=== PATIENT | male | born 1960 | race Caucasian/White ===

== ENCOUNTER 2017-10-30 19:19 | Emergency (ER) | payer OTHER ==
[~2017-10-30] VITALS: Ht 177.8 cm; Wt 74.8 kg
[~2017-10-30 19:19] MED LIST: ACET325 PO; ACET500 PO; ASPI81CH PO; ATOR20 PO; Aspir-Low81 MG PO; Benadryl 50 mg50 MG PO; CEPH500 PO; CRUTCH4 USE; DOCU100 PO; FOLI1 PO; FURO40 PO; HYDACE5 PO; HYDCOR1TC TOP; HYDR1TAB94 PO; IBUP800 PO; LISI5 PO; LOVA20 PO; MELO7.5 PO; METO25 PO; METO50ER PO; MULVITMIND PO; NAPR500 PO; Nix Lice Treatm59 ML TOP; Norco 5-325 Ta1 EACH PO; OXYACE5T PO; PENVK500 PO; POTCHL10ER PO; Permethrin60 GM TP; RXCEPH500 PO; RXHYDACE PO; RXSULTRIDS PO; RXTRAM50 PO; SULTRIDS PO; THIA100 PO; TRAM50 PO; ULTRA-LIGHT RO1 EACH UD; Ultram50 MG PO
== END 2017-10-30 19:40 | disposition home or self-care (01) ==
LOC: ER 19:19
DX: F10.229 Alcohol dependence with intoxication, unspecified (principal); F17.290 Nicotine dependence, other tobacco product, uncomplicated
CPT/HCPCS: 99283

== ENCOUNTER 2017-12-26 23:13 | Emergency (ER) | payer OTHER ==
[~2017-12-26] VITALS: Ht 177.8 cm; Wt 74.8 kg
[2017-12-26] MEDS ORDERED: BUPR150ER PO (23:19)
[2017-12-26] MEDS ORDERED: PRAV20 PO (23:19)
[2017-12-26] MEDS ORDERED: OMEPRAZOLE MAGN20 MG PO (23:19)
[2017-12-26] MEDS ORDERED: ASPI81CH PO (23:20)
[2017-12-26] MEDS ORDERED: METO25ER PO (23:20)
[2017-12-26] MEDS ORDERED: LISI5 PO (23:20)
[2017-12-26] MEDS ORDERED: NITR.4SL SL (23:21)
[2017-12-27 00:40] LABS: Calcium, Ionized (POC) 1.18 mmol/L (1.10-1.46); Chloride (POC) 105 mmol/L (98-108); Creatinine (POC) 1.7 mg/dL (0.8-1.3); Glucose (ISTAT POC) 107 mg/dL (70-99); Hemoglobin (POC) 11.6 g/dL (13.5-17.5); Potassium (POC) 5.2 mmol/L (3.5-5.5); Sodium (POC) 132 mmol/L (135-148); Total CO2 (POC) 16 mmol/L (21-32)
[2017-12-27] MEDS ORDERED: Cipro500 MG PO (00:41)
[2017-12-27 00:49] LABS: Source, Urine Voided
[2017-12-27 01:09] LABS: Bilirubin, Urine Neg (Neg); Blood, Urine 3+ (Neg); Glucose Qualitative, Urine Neg (Neg); Ketones, Urine Neg (Neg); Leukocyte Esterase, Urine 3+ (Neg); Nitrite, Urine Pos (Neg); Protein, Urine 1+ (Neg); Urobilinogen, Urine NORM (Normal)
[2017-12-27 01:10] LABS: Appearance, Urine Hazy (Clear); Color, Urine Pale Yellow (P-Yellow)
[2017-12-27 01:30] LABS: Bacteria Many /hpf; Red Blood Cells, Urine Rare /hpf (0-2); Squamous Epithelial Cells Few /hpf (Few); White Blood Cells, Urine TNTC /hpf (0-5)
== END 2017-12-27 01:40 | disposition home or self-care (01) ==
LOC: ER 23:13
PROVIDERS: Emergency Medicine
DX: N39.0 Urinary tract infection, site not specified (principal); N28.9 Disorder of kidney and ureter, unspecified; I10 Essential (primary) hypertension; F17.200 Nicotine dependence, unspecified, uncomplicated
CPT/HCPCS: 51798; 80047; 81001; 85014; 87077; 87086; 87186; 99283

== ENCOUNTER 2018-06-10 22:02 | Emergency (ER) | payer OTHER ==
[~2018-06-10] VITALS: Ht 180.3 cm; Wt 77.1 kg
[~2018-06-10 22:02] MED LIST changes: +BUPR150ER PO; +Cipro500 MG PO; +METO25ER PO; +NITR.4SL SL; +OMEPRAZOLE MAGN20 MG PO; +PRAV20 PO
== END 2018-06-10 23:39 | disposition home or self-care (01) ==
LOC: ER 22:02
DX: S80.02XA Contusion of left knee, initial encounter (principal); V09.9XXA Pedestrian injured in unspecified transport accident, initial encounter; Z88.5 Allergy status to narcotic agent; I10 Essential (primary) hypertension; F17.210 Nicotine dependence, cigarettes, uncomplicated
CPT/HCPCS: 29505; 73564; 73590; 99283-25

== ENCOUNTER 2018-06-12 16:11 | Emergency (ER) | payer OTHER ==
[~2018-06-12] VITALS: Ht 170.2 cm; Wt 77.1 kg
[2018-06-12] MEDS ORDERED: BUPR150ER PO (16:20)
[2018-06-12] MEDS ORDERED: LISI5 PO (16:21)
[2018-06-12] MEDS ORDERED: CLOP75 PO (16:21)
[2018-06-12] MEDS ORDERED: PRAV20 PO (16:22)
[2018-06-12] MEDS ORDERED: ULTRA-LIGHT RO1 EACH MC ×2 (16:36→16:38)
[2018-06-12] MEDS ORDERED: Norco 5-325 Ta1 EACH PO (16:36)
== END 2018-06-12 16:46 | disposition home or self-care (01) ==
LOC: ER 16:11
DX: S82.142A Displaced bicondylar fracture of left tibia, initial encounter for closed fracture (principal); I10 Essential (primary) hypertension; F17.210 Nicotine dependence, cigarettes, uncomplicated; Z88.5 Allergy status to narcotic agent; Z79.899 Other long term (current) drug therapy; Z79.01 Long term (current) use of anticoagulants; V09.9XXA Pedestrian injured in unspecified transport accident, initial encounter
CPT/HCPCS: 29505; 99282-25

== ENCOUNTER 2018-10-28 07:56 | Emergency (ER) | payer OTHER ==
[~2018-10-28] VITALS: Ht 170.2 cm; Wt 77.1 kg
[~2018-10-28 07:56] MED LIST changes: +CLOP75 PO; +ULTRA-LIGHT RO1 EACH MC
[2018-10-28] MEDS ORDERED: Isosorbide Mono60 MG PO (09:16)
[2018-10-28] MEDS ORDERED: Pantoprazole So40 MG PO (09:16)
[2018-10-28] MEDS ORDERED: AMLO5 PO (09:16)
[2018-10-28] MEDS ORDERED: METO25ER PO (09:16)
[2018-10-28 10:13] LABS: BASOPHILS ABSOLUTE AUTO 0.02 K/mm3 (0.00-0.23); BASOPHILS PERCENT AUTO 0 % (0-2); EOSINOPHILS ABSOLUTE AUTO 0.03 K/mm3 (0.00-0.68); EOSINOPHILS PERCENT AUTO 0 % (0-6); Hematocrit 35.6 % (37.0-53.0); Hemoglobin 11.1 g/dL (13.5-17.5); IMMATURE GRAN ABSOLUTE AUTO 0.04 K/mm3 (0.00-0.10); IMMATURE GRAN PERCENT AUTO 0 % (0-1); LYMPHOCYTES ABSOLUTE AUTO 2.25 K/mm3 (0.84-5.20); LYMPHOCYTES PERCENT AUTO 21 % (21-46); MONOCYTES ABSOLUTE AUTO 1.53 K/mm3 (0.16-1.47); MONOCYTES PERCENT AUTO 14 % (4-13); Mean Corpuscular HGB 28.2 pg (26.0-34.0); Mean Corpuscular HGB Conc 31.2 g/dL (31.5-36.5); Mean Corpuscular Volume 90 fL (80-100); Mean Platelet Volume 10.1 fL (9.1-12.4); NEUTROPHILS ABSOLUTE AUTO 6.82 K/mm3 (1.96-9.15); NEUTROPHILS PERCENT AUTO 64 % (41-73); Platelet Count 238 K/mm3 (150-400); RDW Coefficient Variation 14.7 % (11.7-14.2); RDW Standard Deviation 49.2 fL (35.1-46.3); Red Blood Cell Count 3.94 M/mm3 (4.30-5.90); White Blood Cell Count 10.69 K/mm3 (4.00-11.30)
[2018-10-28 10:32] LABS: Alanine Aminotransfer (ALT/SGP 31 U/L (12-78); Albumin, Blood 3.4 g/dL (3.4-5.0); Albumin/Globulin Ratio 0.6 (0.8-1.8); Alk Phos 92 U/L (50-136); Anion Gap 10 mmol/L (6-16); Aspartate Aminotrans (AST/SGOT 28 U/L (12-37); Bilirubin, Total 0.5 mg/dL (0.1-1.0); Blood Urea Nitrogen 27 mg/dL (8-24); Bun/Creatinine Ratio 22.9 (12.0-20.0); CO2, Blood 22 mmol/L (21-32); Calcium, Blood 8.6 mg/dL (8.5-10.1); Chloride, Blood 104 mmol/L (98-108); Creatinine, Blood 1.18 mg/dL (0.60-1.20); Globulin, Blood 5.4 g/dL (2.2-4.0); Glomerular Filtration Rate >60 (60-); Glucose, Blood 95 mg/dL (70-99); Potassium, Blood 3.8 mmol/L (3.5-5.5); Sodium, Blood 136 mmol/L (136-145); Total Protein, Blood 8.8 g/dL (6.4-8.2); Uric Acid, Blood 9.3 mg/dL (3.5-7.2)
[2018-10-28] MEDS ORDERED: NAPR550 PO (10:46)
[2018-10-28] MEDS ORDERED: Norco 5-325 Ta1 EACH PO (10:46)
== END 2018-10-28 11:00 | disposition home or self-care (01) ==
LOC: ER 07:56
PROVIDERS: Physician Assistant
DX: M79.671 Pain in right foot (principal); I10 Essential (primary) hypertension; I25.10 Atherosclerotic heart disease of native coronary artery without angina pectoris; F17.210 Nicotine dependence, cigarettes, uncomplicated; Z88.5 Allergy status to narcotic agent; Z79.899 Other long term (current) drug therapy
CPT/HCPCS: 36415; 73630; 80053; 84550; 85025; 85651; 86140; 96374; 99284-25; J1885

== ENCOUNTER 2019-11-09 12:28 | Emergency (ER) | payer OTHER ==
[~2019-11-09] VITALS: Ht 154.9 cm; Wt 77.1 kg
[~2019-11-09 12:28] MED LIST changes: +AMLO5 PO; +Isosorbide Mono60 MG PO; +NAPR550 PO; +Pantoprazole So40 MG PO
[2019-11-09 13:30] LABS: Source, Urine Clean Catch
[2019-11-09 13:38] LABS: Bilirubin, Urine Neg (Neg); Blood, Urine 2+ (Neg); Glucose Qualitative, Urine Neg (Neg); Ketones, Urine Neg (Neg); Leukocyte Esterase, Urine 3+ (Neg); Nitrite, Urine Pos (Neg); Protein, Urine 3+ (Neg); Specific Gravity, Urine 1.015 (1.003-1.022); Urobilinogen, Urine NORM (Normal)
[2019-11-09 13:49] LABS: Appearance, Urine Hazy (Clear); Bacteria Many /hpf; Color, Urine Yellow (P-Yellow); Mucus Light (0-Heavy); Squamous Epithelial Cells Few /hpf (Few); White Blood Cells, Urine 50-100 /hpf (0-5)
[2019-11-09 13:57] LABS: BASOPHILS ABSOLUTE AUTO 0.03 K/mm3 (0.00-0.23); BASOPHILS PERCENT AUTO 1 % (0-2); EOSINOPHILS ABSOLUTE AUTO 0.02 K/mm3 (0.00-0.68); EOSINOPHILS PERCENT AUTO 0 % (0-6); Hematocrit 39.8 % (37.0-53.0); Hemoglobin 12.4 g/dL (13.5-17.5); IMMATURE GRAN ABSOLUTE AUTO 0.02 K/mm3 (0.00-0.10); IMMATURE GRAN PERCENT AUTO 0 % (0-1); LYMPHOCYTES ABSOLUTE AUTO 1.74 K/mm3 (0.84-5.20); LYMPHOCYTES PERCENT AUTO 29 % (21-46); MONOCYTES ABSOLUTE AUTO 1.06 K/mm3 (0.16-1.47); MONOCYTES PERCENT AUTO 18 % (4-13); Mean Corpuscular HGB 28.8 pg (26.0-34.0); Mean Corpuscular HGB Conc 31.2 g/dL (31.5-36.5); Mean Corpuscular Volume 93 fL (80-100); Mean Platelet Volume 10.1 fL (9.1-12.4); NEUTROPHILS ABSOLUTE AUTO 3.15 K/mm3 (1.96-9.15); NEUTROPHILS PERCENT AUTO 52 % (41-73); Platelet Count 339 K/mm3 (150-400); RDW Coefficient Variation 16.3 % (11.7-14.2); RDW Standard Deviation 53.5 fL (35.1-46.3); White Blood Cell Count 6.02 K/mm3 (4.00-11.30)
[2019-11-09 14:09] LABS: Alanine Aminotransfer (ALT/SGP 62 U/L (12-78); Albumin, Blood 3.5 g/dL (3.4-5.0); Albumin/Globulin Ratio 0.6 (0.8-1.8); Alk Phos 70 U/L (50-136); Anion Gap 7 mmol/L (6-16); Aspartate Aminotrans (AST/SGOT 57 U/L (12-37); Bilirubin, Total 0.3 mg/dL (0.1-1.0); Blood Urea Nitrogen 16 mg/dL (8-24); Bun/Creatinine Ratio 15.2 (12.0-20.0); CO2, Blood 23 mmol/L (21-32); Calcium, Blood 9.1 mg/dL (8.5-10.1); Chloride, Blood 107 mmol/L (98-108); Creatinine, Blood 1.05 mg/dL (0.60-1.20); Globulin, Blood 5.6 g/dL (2.2-4.0); Glomerular Filtration Rate >60 (60-); Glucose, Blood 102 mg/dL (70-99); Potassium, Blood 4.1 mmol/L (3.5-5.5); Sodium, Blood 137 mmol/L (136-145); Total Protein, Blood 9.1 g/dL (6.4-8.2)
[2019-11-09] MEDS ORDERED: LEVO750 PO (15:01)
== END 2019-11-09 15:03 | disposition home or self-care (01) ==
LOC: ER 12:28
PROVIDERS: Physician Assistant
DX: N39.0 Urinary tract infection, site not specified (principal); Z88.5 Allergy status to narcotic agent; Z79.899 Other long term (current) drug therapy; I10 Essential (primary) hypertension; K21.9 Gastro-esophageal reflux disease without esophagitis; F17.210 Nicotine dependence, cigarettes, uncomplicated
CPT/HCPCS: 36415; 80053; 81001; 85025; 87077; 87086; 87186; 99283

== ENCOUNTER 2019-11-19 11:13 | Emergency (ER) | payer OTHER ==
[~2019-11-19] VITALS: Ht 177.8 cm; Wt 80.7 kg
[~2019-11-19 11:13] MED LIST changes: +LEVO750 PO
[2019-11-19 12:52] LABS: BASOPHILS ABSOLUTE AUTO 0.01 K/mm3 (0.00-0.23); BASOPHILS PERCENT AUTO 0 % (0-2); EOSINOPHILS ABSOLUTE AUTO 0.04 K/mm3 (0.00-0.68); EOSINOPHILS PERCENT AUTO 1 % (0-6); Hematocrit 38.7 % (37.0-53.0); Hemoglobin 12.1 g/dL (13.5-17.5); IMMATURE GRAN ABSOLUTE AUTO 0.03 K/mm3 (0.00-0.10); IMMATURE GRAN PERCENT AUTO 1 % (0-1); LYMPHOCYTES ABSOLUTE AUTO 1.68 K/mm3 (0.84-5.20); LYMPHOCYTES PERCENT AUTO 27 % (21-46); MONOCYTES PERCENT AUTO 11 % (4-13); Mean Corpuscular HGB 28.6 pg (26.0-34.0); Mean Corpuscular HGB Conc 31.3 g/dL (31.5-36.5); Mean Corpuscular Volume 92 fL (80-100); NEUTROPHILS ABSOLUTE AUTO 3.79 K/mm3 (1.96-9.15); NEUTROPHILS PERCENT AUTO 61 % (41-73); Platelet Count 294 K/mm3 (150-400); RDW Coefficient Variation 16.4 % (11.7-14.2); RDW Standard Deviation 54.4 fL (35.1-46.3); Red Blood Cell Count 4.23 M/mm3 (4.30-5.90); White Blood Cell Count 6.25 K/mm3 (4.00-11.30)
[2019-11-19 13:13] LABS: Alanine Aminotransfer (ALT/SGP 26 U/L (12-78); Albumin, Blood 3.2 g/dL (3.4-5.0); Albumin/Globulin Ratio 0.6 (0.8-1.8); Alk Phos 64 U/L (50-136); Anion Gap 4 mmol/L (6-16); Aspartate Aminotrans (AST/SGOT 24 U/L (12-37); Bilirubin, Total 0.2 mg/dL (0.1-1.0); Blood Urea Nitrogen 30 mg/dL (8-24); CO2, Blood 25 mmol/L (21-32); Calcium, Blood 9.4 mg/dL (8.5-10.1); Chloride, Blood 109 mmol/L (98-108); Creatinine, Blood 1.07 mg/dL (0.60-1.20); Globulin, Blood 5.6 g/dL (2.2-4.0); Glomerular Filtration Rate >60 (60-); Glucose, Blood 110 mg/dL (70-99); Potassium, Blood 4.1 mmol/L (3.5-5.5); Sodium, Blood 138 mmol/L (136-145); Total Protein, Blood 8.8 g/dL (6.4-8.2)
[2019-11-19 15:09] LABS: Source, Urine Clean Catch
[2019-11-19 15:12] LABS: Bilirubin, Urine Neg (Neg); Blood, Urine Neg (Neg); Glucose Qualitative, Urine Neg (Neg); Ketones, Urine Neg (Neg); Leukocyte Esterase, Urine Neg (Neg); Nitrite, Urine Neg (Neg); Protein, Urine 3+ (Neg); Specific Gravity, Urine 1.015 (1.003-1.022); Urobilinogen, Urine NORM (Normal)
[2019-11-19 15:19] LABS: Appearance, Urine Clear (Clear); Color, Urine Yellow (P-Yellow)
[2019-11-19 15:20] LABS: Bacteria Rare /hpf; Red Blood Cells, Urine 0-2 /hpf (0-2); Squamous Epithelial Cells Few /hpf (Few); White Blood Cells, Urine 0-2 /hpf (0-5)
[2019-11-19] MEDS ORDERED: KETO10 PO (18:26)
[2019-11-19] MEDS ORDERED: ACETAMINOPHEN500 MG PO (18:26)
[2019-11-19] MEDS ORDERED: ULTRA-LIGHT RO1 EACH MC (18:26)
== END 2019-11-19 21:27 | disposition home or self-care (01) ==
LOC: ER 11:13
PROVIDERS: Emergency Medicine; Physician Assistant
DX: S83.92XA Sprain of unspecified site of left knee, initial encounter (principal); F17.210 Nicotine dependence, cigarettes, uncomplicated; Z88.5 Allergy status to narcotic agent; Z79.899 Other long term (current) drug therapy; X58.XXXA Exposure to other specified factors, initial encounter
CPT/HCPCS: 36415; 73562-LT; 73706; 80053; 81001; 85025; 93005; 93010; 96374-59; 99285-25; J1885; Q9967

== ENCOUNTER 2020-06-14 13:42 | Emergency (ER) | payer OTHER ==
[~2020-06-14] VITALS: Ht 177.8 cm; Wt 79.4 kg
[~2020-06-14 13:42] MED LIST changes: +ACETAMINOPHEN500 MG PO; +KETO10 PO
[2020-06-14 16:28] LABS: Source, Urine Clean Catch
[2020-06-14 16:38] LABS: Appearance, Urine Cloudy (Clear); Bilirubin, Urine Neg (Neg); Blood, Urine 1+ (Neg); Color, Urine Yellow (P-Yellow); Glucose Qualitative, Urine Neg (Neg); Ketones, Urine Neg (Neg); Leukocyte Esterase, Urine 3+ (Neg); Nitrite, Urine Neg (Neg); Protein, Urine 3+ (Neg); Urobilinogen, Urine NORM (Normal)
[2020-06-14 16:51] LABS: Bacteria Many /hpf; Squamous Epithelial Cells Mod /hpf (Few); White Blood Cells, Urine 25-50 /hpf (0-5)
[2020-06-14] MEDS ORDERED: Bactrim Ds Tab1 EACH PO (19:38)
[2020-06-14] MEDS ORDERED: CEPH500 PO (19:38)
== END 2020-06-14 20:05 | disposition home or self-care (01) ==
LOC: ER 13:42
PROVIDERS: Emergency Medicine
DX: L02.414 Cutaneous abscess of left upper limb (principal); N39.0 Urinary tract infection, site not specified; F15.90 Other stimulant use, unspecified, uncomplicated; I10 Essential (primary) hypertension; F17.210 Nicotine dependence, cigarettes, uncomplicated; Z95.1 Presence of aortocoronary bypass graft; Z88.5 Allergy status to narcotic agent; Z79.899 Other long term (current) drug therapy
CPT/HCPCS: 10060; 81001; 87077; 87086; 87186; 99283-25; A9270-GY

== ENCOUNTER 2021-01-01 15:34 | Emergency (ER) | payer OTHER ==
[~2021-01-01] VITALS: Ht 177.8 cm; Wt 72.6 kg
[~2021-01-01 15:34] MED LIST changes: +Bactrim Ds Tab1 EACH PO
[2021-01-01] MEDS ORDERED: NAPR500 PO (17:13)
== END 2021-01-01 17:30 | disposition home or self-care (01) ==
LOC: ER 15:34
DX: M25.531 Pain in right wrist (principal); M54.5 Low back pain; I10 Essential (primary) hypertension; F17.210 Nicotine dependence, cigarettes, uncomplicated; Z88.5 Allergy status to narcotic agent; Z79.899 Other long term (current) drug therapy
CPT/HCPCS: 73130; 99283-25; A9270

== ENCOUNTER 2021-05-16 22:10 | Emergency (ER) | payer OTHER ==
[~2021-05-16] VITALS: Ht 167.6 cm; Wt 81.7 kg
[2021-05-17 01:09] LABS: BASOPHILS ABSOLUTE AUTO 0.03 K/mm3 (0.00-0.23); BASOPHILS PERCENT AUTO 1 % (0-2); EOSINOPHILS ABSOLUTE AUTO 0.17 K/mm3 (0.00-0.68); EOSINOPHILS PERCENT AUTO 3 % (0-6); Hematocrit 38.1 % (37.0-53.0); Hemoglobin 11.9 g/dL (13.5-17.5); IMMATURE GRAN ABSOLUTE AUTO 0.01 K/mm3 (0.00-0.10); IMMATURE GRAN PERCENT AUTO 0 % (0-1); LYMPHOCYTES ABSOLUTE AUTO 2.38 K/mm3 (0.84-5.20); LYMPHOCYTES PERCENT AUTO 38 % (21-46); MONOCYTES ABSOLUTE AUTO 0.89 K/mm3 (0.16-1.47); MONOCYTES PERCENT AUTO 14 % (4-13); Mean Corpuscular HGB 28.1 pg (26.0-34.0); Mean Corpuscular HGB Conc 31.2 g/dL (31.5-36.5); Mean Corpuscular Volume 90 fL (80-100); Mean Platelet Volume 10.2 fL (9.1-12.4); NEUTROPHILS ABSOLUTE AUTO 2.78 K/mm3 (1.96-9.15); NEUTROPHILS PERCENT AUTO 44 % (41-73); Platelet Count 240 K/mm3 (150-400); RDW Coefficient Variation 14.6 % (11.7-14.2); RDW Standard Deviation 47.3 fL (35.1-46.3); Red Blood Cell Count 4.24 M/mm3 (4.30-5.90); White Blood Cell Count 6.26 K/mm3 (4.00-11.30)
[2021-05-17 01:37] LABS: Alanine Aminotransfer (ALT/SGP 23 U/L (12-78); Albumin, Blood 3.3 g/dL (3.4-5.0); Albumin/Globulin Ratio 0.6 (0.8-1.8); Alk Phos 96 U/L (50-136); Anion Gap 6 mmol/L (6-16); Aspartate Aminotrans (AST/SGOT 21 U/L (12-37); Bilirubin, Total 0.1 mg/dL (0.1-1.0); Blood Urea Nitrogen 24 mg/dL (8-24); Bun/Creatinine Ratio 17.1 (12.0-20.0); CO2, Blood 18 mmol/L (21-32); Calcium, Blood 8.9 mg/dL (8.5-10.1); Chloride, Blood 112 mmol/L (98-108); Globulin, Blood 5.6 g/dL (2.2-4.0); Glomerular Filtration Rate 51 (60-); Glucose, Blood 93 mg/dL (70-99); Potassium, Blood 5.2 mmol/L (3.5-5.5); Sodium, Blood 136 mmol/L (136-145); Total Protein, Blood 8.9 g/dL (6.4-8.2); Troponin I <0.015 ng/mL (0.000-0.040)
[2021-05-17] MEDS ORDERED: Lasix20 MG PO (02:35)
== END 2021-05-17 02:49 | disposition home or self-care (01) ==
LOC: ER 22:10
PROVIDERS: Emergency Medicine
DX: R60.9 Edema, unspecified (principal); R06.89 Other abnormalities of breathing; F17.210 Nicotine dependence, cigarettes, uncomplicated; F15.220 Other stimulant dependence with intoxication, uncomplicated; Z95.1 Presence of aortocoronary bypass graft; Z88.5 Allergy status to narcotic agent
CPT/HCPCS: 0031A; 71045; 80053; 83880; 84484; 85025; 91303; 93005; 93010; 99285-25

== ENCOUNTER 2021-12-20 00:37 | Inpatient (IN) | payer OTHER ==
[~2021-12-20] VITALS: Ht 172.7 cm; Wt 97.9 kg
[~2021-12-20 00:37] MED LIST changes: +Lasix20 MG PO
[2021-12-20] MEDS ORDERED: LOSARTAN POTASS25 M2 PO (00:50)
[2021-12-20 01:10] LABS: BASOPHILS ABSOLUTE AUTO 0.03 K/mm3 (0.00-0.23); BASOPHILS PERCENT AUTO 0 % (0-2); EOSINOPHILS ABSOLUTE AUTO 0.01 K/mm3 (0.00-0.68); EOSINOPHILS PERCENT AUTO 0 % (0-6); Hematocrit 33.9 % (37.0-53.0); Hemoglobin 10.4 g/dL (13.5-17.5); IMMATURE GRAN ABSOLUTE AUTO 0.13 K/mm3 (0.00-0.10); IMMATURE GRAN PERCENT AUTO 1 % (0-1); LYMPHOCYTES ABSOLUTE AUTO 1.01 K/mm3 (0.84-5.20); LYMPHOCYTES PERCENT AUTO 5 % (21-46); MONOCYTES ABSOLUTE AUTO 1.24 K/mm3 (0.16-1.47); MONOCYTES PERCENT AUTO 6 % (4-13); Mean Corpuscular HGB 26.9 pg (26.0-34.0); Mean Corpuscular HGB Conc 30.7 g/dL (31.5-36.5); Mean Corpuscular Volume 88 fL (80-100); Mean Platelet Volume 10.5 fL (9.1-12.4); NEUTROPHILS ABSOLUTE AUTO 17.14 K/mm3 (1.96-9.15); NEUTROPHILS PERCENT AUTO 88 % (41-73); Platelet Count 251 K/mm3 (150-400); RDW Coefficient Variation 17.2 % (11.7-14.2); RDW Standard Deviation 55.3 fL (35.1-46.3); Red Blood Cell Count 3.87 M/mm3 (4.30-5.90); White Blood Cell Count 19.56 K/mm3 (4.00-11.30)
[2021-12-20 01:21] LABS: Albumin, Blood 3.5 g/dL (3.4-5.0); Albumin/Globulin Ratio 0.7 (0.8-1.8); Bilirubin, Total 0.3 mg/dL (0.1-1.0); Bun/Creatinine Ratio 21.6 (12.0-20.0); Calcium, Blood 9.1 mg/dL (8.5-10.1); Creatinine, Blood 1.25 mg/dL (0.60-1.20); Globulin, Blood 4.8 g/dL (2.2-4.0); Magnesium, Blood 1.6 mg/dL (1.6-2.4); Potassium, Blood 4.9 mmol/L (3.5-5.5); Total Protein, Blood 8.3 g/dL (6.4-8.2)
[2021-12-20 03:55] LABS: Influenza A, PCR NEGATIVE (NEGATIVE); Influenza B, PCR NEGATIVE (NEGATIVE); Resp Syncytial Virus, PCR NEGATIVE (NEGATIVE); SARS-Cov-2 (COVID-19) PCR, MMC NEGATIVE (NEGATIVE)
[2021-12-20] MEDS ORDERED: PRAV20 PO (05:18)
[2021-12-20] MEDS ORDERED: PANTOPRAZOLE SO40 M2 PO (05:19)
--- NOTE | 2021-12-20 06:36 | NUR ---
PT ARRIVED TO ROOM FROM ER VIA GURNEY IN STABLE CONDITION. PT HAS SOB THAT INCREASES WITH EXERTION, LUNGS ARE DIMINISHED WITH EXP/INS WHEEZES AND FINE CRACKLES T/O ON 3L NC O2 AT 98%. PT DENIES PAIN BUT REPORTS THAT WHEN HE MOVES HIS R ARM IT HURTS AND HE HAS ARTHRITIS WITH CHRONIC PAIN IN HIS KNEES AND BACK. PT HAS SCRATCHES AND REDNESS ON LE'S, TRACE EDEMA IN LE'S. PT DENIES NEED FOR ANYTHING AT THIS TIME. NO OTHER APPARENT SIGNS OF DISTRESS. CALL LIGHT IS IN REACH.
--- NOTE | 2021-12-20 16:09 | NUR ---
ALERT. CHRONIC PAIN RT SHLDR WHEN MOVING AREA. WHEEZES T/O. USES CPAP WHEN SLEEPING DURING DAY. PER MD KEEP SATS 88-94%. USES URINAL. IV PATENT. REQUESTED BEER FOR LUNCH AND DINNER,BUT MD FELT GABAPENTIN WAS BETTER FOR HIS WITHDRAWALS. PATIENT WAS ADVISED AND VERBALIZES UNDERSTANDING. ABLE TO MAKE NEEDS KNOWN. WCTM
--- NOTE | 2021-12-21 04:35 | NUR ---
SHIFT SUMMARY PATIENT DENIES ANY PAIN ABLE TO VOICE NEED REDIRECTED SEVERAL TIMES FOR REMOVING TELE STICKERS AND DISCONNECT IT .DR AMATO CALLED STATED THAT STRESS TEST RESULTS ARE NORMAL PATIENT OK TO BE D/C THIS MORNING .
--- NOTE | 2021-12-21 04:51 | NUR ---
SHIFT SUMMARY PATIENT CONT CIWA MONITOR NO NAUSA/VOMIT SOB NOTED CALM MOOD SLEPT MOST OF THE NIGHT DENIES PAIN NON PRODUCTIVE COUGH NOTED LUNGS SOUND CLEAR ROUTINE BREATHING TX ADM BY RT ON DUTY WITH RELIEF .NO ACUTE CHANGES NOTED
--- NOTE | 2021-12-21 16:35 | NUR ---
ALERT. ORIENTED. AWARE NPO EXCEPT FOR ICE CHIPS W/ORAL CARE PRIOR. LUNGS WHEEZING W/COARSE SOUNDS LOWER. IV PATENT. WCTM
[2021-12-22 04:29] LABS: BASOPHILS ABSOLUTE AUTO 0.03 K/mm3 (0.00-0.23); BASOPHILS PERCENT AUTO 0 % (0-2); EOSINOPHILS PERCENT AUTO 0 % (0-6); Hematocrit 33.9 % (37.0-53.0); Hemoglobin 10.3 g/dL (13.5-17.5); IMMATURE GRAN ABSOLUTE AUTO 0.25 K/mm3 (0.00-0.10); IMMATURE GRAN PERCENT AUTO 1 % (0-1); LYMPHOCYTES ABSOLUTE AUTO 0.77 K/mm3 (0.84-5.20); LYMPHOCYTES PERCENT AUTO 4 % (21-46); MONOCYTES ABSOLUTE AUTO 1.04 K/mm3 (0.16-1.47); MONOCYTES PERCENT AUTO 6 % (4-13); Mean Corpuscular HGB 27.2 pg (26.0-34.0); Mean Corpuscular HGB Conc 30.4 g/dL (31.5-36.5); Mean Corpuscular Volume 90 fL (80-100); Mean Platelet Volume 10.6 fL (9.1-12.4); NEUTROPHILS ABSOLUTE AUTO 16.96 K/mm3 (1.96-9.15); NEUTROPHILS PERCENT AUTO 89 % (41-73); Platelet Count 268 K/mm3 (150-400); RDW Coefficient Variation 17.5 % (11.7-14.2); RDW Standard Deviation 57.1 fL (35.1-46.3); Red Blood Cell Count 3.78 M/mm3 (4.30-5.90); White Blood Cell Count 19.05 K/mm3 (4.00-11.30)
[2021-12-22 04:44] LABS: Albumin, Blood 3.3 g/dL (3.4-5.0); Anion Gap 5 mmol/L (6-16); Blood Urea Nitrogen 51 mg/dL (8-24); Bun/Creatinine Ratio 40.2 (12.0-20.0); CO2, Blood 23 mmol/L (21-32); Calcium, Blood 9.2 mg/dL (8.5-10.1); Chloride, Blood 110 mmol/L (98-108); Creatinine, Blood 1.27 mg/dL (0.60-1.20); Glomerular Filtration Rate 57 (60-); Glucose, Blood 166 mg/dL (70-99); Magnesium, Blood 2.6 mg/dL (1.6-2.4); Phosphorus, Blood 4.5 mg/dL (2.5-4.9); Potassium, Blood 4.4 mmol/L (3.5-5.5); Sodium, Blood 138 mmol/L (136-145)
--- NOTE | 2021-12-22 15:45 | NUR ---
CALLED DR FOR ELEVATED BP. RESTARTED THE PT ON HIS HOME BP MEDS. [place] AND NORVASC GIVEN THIS AFTERNOON. WILL RECHECH THE BP.
--- NOTE | 2021-12-22 17:06 | NUR ---
SHIFT SUMMARY AOX4; PT IS 1P ASSIST TO CHAIR WHEN EATING. DYSPNEA ON EXERTION. PT IS ON 2L PRN ESPECIALLY WHEN ASLEEP. PT BP IS NOW STABLE, WILL RESTART HOME MEDS TOMORROW AM. BED IS IN THE LOWEST POSITION AND CALL LIGHT WITHIN REACH.
[2021-12-23 04:45] LABS: BASOPHILS ABSOLUTE AUTO 0.02 K/mm3 (0.00-0.23); BASOPHILS PERCENT AUTO 0 % (0-2); EOSINOPHILS PERCENT AUTO 0 % (0-6); Hematocrit 31.7 % (37.0-53.0); Hemoglobin 9.5 g/dL (13.5-17.5); IMMATURE GRAN ABSOLUTE AUTO 0.38 K/mm3 (0.00-0.10); IMMATURE GRAN PERCENT AUTO 2 % (0-1); LYMPHOCYTES ABSOLUTE AUTO 0.81 K/mm3 (0.84-5.20); LYMPHOCYTES PERCENT AUTO 5 % (21-46); MONOCYTES ABSOLUTE AUTO 1.23 K/mm3 (0.16-1.47); MONOCYTES PERCENT AUTO 7 % (4-13); Mean Corpuscular HGB 26.9 pg (26.0-34.0); Mean Corpuscular Volume 90 fL (80-100); Mean Platelet Volume 10.8 fL (9.1-12.4); NEUTROPHILS ABSOLUTE AUTO 14.15 K/mm3 (1.96-9.15); NEUTROPHILS PERCENT AUTO 85 % (41-73); Platelet Count 278 K/mm3 (150-400); RDW Coefficient Variation 17.6 % (11.7-14.2); RDW Standard Deviation 57.8 fL (35.1-46.3); Red Blood Cell Count 3.53 M/mm3 (4.30-5.90); White Blood Cell Count 16.59 K/mm3 (4.00-11.30)
[2021-12-23 05:07] LABS: Bun/Creatinine Ratio 45.2 (12.0-20.0); Creatinine, Blood 1.35 mg/dL (0.60-1.20); Potassium, Blood 4.9 mmol/L (3.5-5.5)
--- NOTE | 2021-12-23 17:17 | NUR ---
SUMMARY- PT A/O X3-4. FLAT AFFECT. STATES HE FEELS HIS BREATHING IS BETTER THAN WHEN HE ARRIVED TO ED. PT AMBLATES SBA IN THE ROOM. HAD A SHOWER TODAY. DYPPNEA WITH EXERTION, O2 AT 2L. SATS 98%, OXYGEN TAKEN OFF 1715 AND SATS MAINTAINING 96% ROOM AIR. TOLERATING FOOD AND FLUIDS. STATES LAST BM SATURDAY. GIVEN PRUNE JUICE. LIKELY DC HOME TOMORROW
[2021-12-24 05:05] LABS: BASOPHILS ABSOLUTE AUTO 0.05 K/mm3 (0.00-0.23); BASOPHILS PERCENT AUTO 0 % (0-2); EOSINOPHILS PERCENT AUTO 0 % (0-6); Hematocrit 32.7 % (37.0-53.0); Hemoglobin 9.9 g/dL (13.5-17.5); IMMATURE GRAN ABSOLUTE AUTO 0.56 K/mm3 (0.00-0.10); IMMATURE GRAN PERCENT AUTO 3 % (0-1); LYMPHOCYTES ABSOLUTE AUTO 2.23 K/mm3 (0.84-5.20); LYMPHOCYTES PERCENT AUTO 14 % (21-46); MONOCYTES ABSOLUTE AUTO 1.91 K/mm3 (0.16-1.47); MONOCYTES PERCENT AUTO 12 % (4-13); Mean Corpuscular HGB Conc 30.3 g/dL (31.5-36.5); Mean Corpuscular Volume 89 fL (80-100); Mean Platelet Volume 10.7 fL (9.1-12.4); NEUTROPHILS ABSOLUTE AUTO 11.79 K/mm3 (1.96-9.15); NEUTROPHILS PERCENT AUTO 71 % (41-73); Platelet Count 305 K/mm3 (150-400); RDW Coefficient Variation 17.8 % (11.7-14.2); RDW Standard Deviation 58.6 fL (35.1-46.3); Red Blood Cell Count 3.66 M/mm3 (4.30-5.90); White Blood Cell Count 16.54 K/mm3 (4.00-11.30)
[2021-12-24 05:26] LABS: Albumin/Globulin Ratio 0.7 (0.8-1.8); Bilirubin, Total 0.2 mg/dL (0.1-1.0); Bun/Creatinine Ratio 45.9 (12.0-20.0); Calcium, Blood 8.5 mg/dL (8.5-10.1); Creatinine, Blood 1.33 mg/dL (0.60-1.20); Globulin, Blood 4.4 g/dL (2.2-4.0); Magnesium, Blood 2.7 mg/dL (1.6-2.4); Potassium, Blood 4.3 mmol/L (3.5-5.5); Total Protein, Blood 7.4 g/dL (6.4-8.2)
--- NOTE | 2021-12-24 05:49 | NUR ---
SHIFT SUMMARY PATIENT ALERT AND ORIENTED DENIES PAIN IN THIS SHIFT ABLE TO VOICE NEEDS REQUESTED THIS NURSE TO REMOVE THE CPAP PT TEACHING DONE BUT PT INSISTED THAT HE DOES NOT NEED IT.LUNGS SOUND CLEAR NANDA NO COUGHING NO SOB NOTED NO ACUTE CHANGE NOTED
[2021-12-24] MEDS ORDERED: Acetaminophen325 M1 PO (09:33)
[2021-12-24] MEDS ORDERED: GABA300 PO (09:34)
[2021-12-24] MEDS ORDERED: NICO21TP TOP (09:35)
[2021-12-24] MEDS ORDERED: COMBIVENT RESPIM4 G1 INH (09:35)
[2021-12-24] MEDS ORDERED: PRED20 PO (09:36)
[2021-12-24] MEDS ORDERED: VISBIOME 112.51 EACH PO (09:37)
[2021-12-24] MEDS ORDERED: CEFD300 PO (09:37)
--- NOTE | 2021-12-24 11:35 | NUR ---
SUMMARY- PT DISCHARGED WITH DC INSTRUCTIONS. PT IS AMBULATORY IN THE ROOM. MIN SOB WITH EXERTION. SATS 98% ROOM AIR, SATS DECREASE WITH COUGHING EPISODE TO 93%. HOME O2 EVAL COMPLETE; PT DOESN'T QUALIFY FOR HOME OXYGEN. RX FAXED TO [facility] WHERE HE STATES HE HAS SOMEONE TO HELP HIM PICK THAT UP. CALLED [facility] TO PICK HIM UP, DID NOT WANT TO WAIT UNTIL 1400 [facility] HOS[facility] TRANSPORT OFFERED. SENT HOME WITH BELONGINGS INCLUDING FLIP PHONE AND END USER CONSULTANT. WHEEL CHAIR OUT TO [facility]4
== END 2021-12-24 11:29 | disposition home or self-care (01) | DRG 871 ==
LOC: ER 00:37 → MEDS 05:28
PROVIDERS: Family Medicine; Internal Medicine; Student in an Organized Health Care Education/Training Program; ADMIT Internal Medicine
DX: A41.9 Sepsis, unspecified organism (principal); J18.9 Pneumonia, unspecified organism; J96.01 Acute respiratory failure with hypoxia; J44.1 Chronic obstructive pulmonary disease with (acute) exacerbation; I50.32 Chronic diastolic (congestive) heart failure; R65.20 Severe sepsis without septic shock; J44.0 Chronic obstructive pulmonary disease with (acute) lower respiratory infection; Z23 Encounter for immunization; D64.9 Anemia, unspecified; I25.10 Atherosclerotic heart disease of native coronary artery without angina pectoris; Z20.822 Contact with and (suspected) exposure to COVID-19; R13.10 Dysphagia, unspecified; F10.20 Alcohol dependence, uncomplicated; M54.50 Low back pain, unspecified; G89.29 Other chronic pain; M10.9 Gout, unspecified; J45.909 Unspecified asthma, uncomplicated; I11.0 Hypertensive heart disease with heart failure; F17.210 Nicotine dependence, cigarettes, uncomplicated; Z88.5 Allergy status to narcotic agent; Z95.1 Presence of aortocoronary bypass graft; Z79.899 Other long term (current) drug therapy
CPT/HCPCS: 0241U; 36415; 71045; 74230; 80048; 80053; 80069; 83605; 83735; 83880; 84145; 85025; 87040; 87070; 87205; 90686; 92526; 92610; 92611; 93005; 93010; 94640; 94645; 94660; 94664; 94760; 94761; 94762; 96365; 96375; 99285-25; A9270; J0456; J0696; J1650; J2930; J7050; J7512

== ENCOUNTER 2022-04-16 19:29 | Emergency (ER) | payer OTHER ==
[~2022-04-16] VITALS: Ht 177.8 cm; Wt 119.3 kg
[~2022-04-16 19:29] MED LIST changes: +Acetaminophen325 M1 PO; +CEFD300 PO; +COMBIVENT RESPIM4 G1 INH; +GABA300 PO; +LOSARTAN POTASS25 M2 PO; +NICO21TP TOP; +PANTOPRAZOLE SO40 M2 PO; +PRED20 PO; +VISBIOME 112.51 EACH PO
[2022-04-16] MEDS ORDERED: CEPH500 PO (20:31)
== END 2022-04-16 20:51 | disposition home or self-care (01) ==
LOC: ER 19:29
DX: L03.116 Cellulitis of left lower limb (principal); L03.115 Cellulitis of right lower limb; I11.0 Hypertensive heart disease with heart failure; I50.9 Heart failure, unspecified; J44.9 Chronic obstructive pulmonary disease, unspecified; F17.210 Nicotine dependence, cigarettes, uncomplicated; Z88.5 Allergy status to narcotic agent; Z79.899 Other long term (current) drug therapy
CPT/HCPCS: A9270

== ENCOUNTER 2023-01-09 17:39 | Emergency (ER) | payer OTHER ==
[~2023-01-09] VITALS: Ht 180.3 cm; Wt 90.7 kg
[2023-01-09 18:17] LABS: BASOPHILS ABSOLUTE AUTO 0.03 K/mm3 (0.00-0.23); BASOPHILS PERCENT AUTO 0 % (0-2); EOSINOPHILS ABSOLUTE AUTO 0.02 K/mm3 (0.00-0.68); EOSINOPHILS PERCENT AUTO 0 % (0-6); Hematocrit 31.4 % (37.0-53.0); Hemoglobin 9.6 g/dL (13.5-17.5); IMMATURE GRAN PERCENT AUTO 1 % (0-1); LYMPHOCYTES ABSOLUTE AUTO 2.46 K/mm3 (0.84-5.20); LYMPHOCYTES PERCENT AUTO 15 % (21-46); MONOCYTES ABSOLUTE AUTO 1.76 K/mm3 (0.16-1.47); MONOCYTES PERCENT AUTO 11 % (4-13); Mean Corpuscular HGB 24.7 pg (26.0-34.0); Mean Corpuscular HGB Conc 30.6 g/dL (31.5-36.5); Mean Corpuscular Volume 81 fL (80-100); Mean Platelet Volume 10.2 fL (9.1-12.4); NEUTROPHILS ABSOLUTE AUTO 11.76 K/mm3 (1.96-9.15); NEUTROPHILS PERCENT AUTO 73 % (41-73); Platelet Count 448 K/mm3 (150-400); RDW Coefficient Variation 17.1 % (11.7-14.2); RDW Standard Deviation 50.1 fL (35.1-46.3); Red Blood Cell Count 3.88 M/mm3 (4.30-5.90); White Blood Cell Count 16.13 K/mm3 (4.00-11.30)
[2023-01-09 18:34] LABS: Albumin, Blood 2.8 g/dL (3.4-5.0); Albumin/Globulin Ratio 0.5 (0.8-1.8); Bilirubin, Total 0.3 mg/dL (0.1-1.0); Calcium, Blood 8.9 mg/dL (8.5-10.1); Creatinine, Blood 1.26 mg/dL (0.60-1.20); Globulin, Blood 5.8 g/dL (2.2-4.0); Potassium, Blood 4.3 mmol/L (3.5-5.5); Total Protein, Blood 8.6 g/dL (6.4-8.2)
[2023-01-09 22:29] LABS: Source, Urine Clean Catch
[2023-01-09 22:46] LABS: Bilirubin, Urine Neg (Neg); Blood, Urine 4+ (Neg); Glucose Qualitative, Urine Neg (Neg); Ketones, Urine Neg (Neg); Leukocyte Esterase, Urine 3+ (Neg); Nitrite, Urine Neg (Neg); Protein, Urine 3+ (Neg); Specific Gravity, Urine 1.015 (1.003-1.022); Urobilinogen, Urine NORM (Normal)
[2023-01-09 23:12] LABS: Appearance, Urine Hazy (Clear); Color, Urine Yellow (P-Yellow)
[2023-01-09 23:14] LABS: Bacteria Many /hpf; Hyaline Casts 0-2 /lpf (0-2); Squamous Epithelial Cells Few /hpf (Few); Transitional Epithelial Cells Rare /hpf (0-Rare); White Blood Cells, Urine TNTC /hpf (0-5)
[2023-01-09 23:30] LABS: Influenza A, PCR NEGATIVE (NEGATIVE); Influenza B, PCR NEGATIVE (NEGATIVE); Resp Syncytial Virus, PCR NEGATIVE (NEGATIVE); SARS-Cov-2 (COVID-19) PCR, MMC NEGATIVE (NEGATIVE)
[2023-01-10 00:45] VITALS: BP 176/86
[2023-01-10] MEDS ORDERED: CEPH500 PO (00:54)
== END 2023-01-10 01:07 | disposition home or self-care (01) ==
LOC: ER 17:39
PROVIDERS: Physician Assistant; Student in an Organized Health Care Education/Training Program
DX: N39.0 Urinary tract infection, site not specified (principal); D72.829 Elevated white blood cell count, unspecified; E87.1 Hypo-osmolality and hyponatremia; Z88.5 Allergy status to narcotic agent; Z79.899 Other long term (current) drug therapy; Z79.52 Long term (current) use of systemic steroids; F17.210 Nicotine dependence, cigarettes, uncomplicated; Z20.822 Contact with and (suspected) exposure to COVID-19; I11.0 Hypertensive heart disease with heart failure; I50.9 Heart failure, unspecified; J44.9 Chronic obstructive pulmonary disease, unspecified; M10.9 Gout, unspecified; I25.810 Atherosclerosis of coronary artery bypass graft(s) without angina pectoris; Z12.5 Encounter for screening for malignant neoplasm of prostate; D64.9 Anemia, unspecified
CPT/HCPCS: 0241U; 36415; 71046; 80053; 80061; 81001; 83605; 84443; 85025; 87077; 87086; 87186; 93005; 93010; 96360; 99283-25; G0103; J7030

== ENCOUNTER 2023-05-02 19:06 | Emergency (ER) | payer OTHER ==
[~2023-05-02] VITALS: Ht 177.8 cm; Wt 77.9 kg
[2023-05-02 19:14] VITALS: BP 193/108
[2023-05-02 19:39] LABS: BASOPHILS ABSOLUTE AUTO 0.06 K/mm3 (0.00-0.23); BASOPHILS PERCENT AUTO 1 % (0-2); EOSINOPHILS ABSOLUTE AUTO 0.05 K/mm3 (0.00-0.68); EOSINOPHILS PERCENT AUTO 0 % (0-6); Hematocrit 27.7 % (37.0-53.0); Hemoglobin 8.7 g/dL (13.5-17.5); IMMATURE GRAN ABSOLUTE AUTO 0.06 K/mm3 (0.00-0.10); IMMATURE GRAN PERCENT AUTO 1 % (0-1); LYMPHOCYTES ABSOLUTE AUTO 2.74 K/mm3 (0.84-5.20); LYMPHOCYTES PERCENT AUTO 22 % (21-46); MONOCYTES ABSOLUTE AUTO 0.94 K/mm3 (0.16-1.47); MONOCYTES PERCENT AUTO 7 % (4-13); Mean Corpuscular HGB Conc 31.4 g/dL (31.5-36.5); Mean Corpuscular Volume 73 fL (80-100); Mean Platelet Volume 10.2 fL (9.1-12.4); NEUTROPHILS ABSOLUTE AUTO 8.81 K/mm3 (1.96-9.15); NEUTROPHILS PERCENT AUTO 70 % (41-73); Platelet Count 600 K/mm3 (150-400); RDW Coefficient Variation 18.3 % (11.7-14.2); RDW Standard Deviation 47.9 fL (35.1-46.3); Red Blood Cell Count 3.79 M/mm3 (4.30-5.90); White Blood Cell Count 12.66 K/mm3 (4.00-11.30)
[2023-05-02 20:05] LABS: Albumin, Blood 2.6 g/dL (3.4-5.0); Albumin/Globulin Ratio 0.4 (0.8-1.8); Bilirubin, Total 0.5 mg/dL (0.1-1.0); Bun/Creatinine Ratio 30.4 (12.0-20.0); Calcium, Blood 9.7 mg/dL (8.5-10.1); Creatinine, Blood 0.92 mg/dL (0.60-1.20); Globulin, Blood 5.8 g/dL (2.2-4.0); Potassium, Blood 4.5 mmol/L (3.5-5.5); Total Protein, Blood 8.4 g/dL (6.4-8.2)
[2023-05-02 22:12] LABS: Source, Urine Clean Catch
[2023-05-02 22:21] LABS: Bilirubin, Urine Neg (Neg); Blood, Urine 1+ (Neg); Glucose Qualitative, Urine Neg (Neg); Ketones, Urine Neg (Neg); Leukocyte Esterase, Urine 1+ (Neg); Nitrite, Urine Neg (Neg); Protein, Urine 3+ (Neg); Specific Gravity, Urine 1.015 (1.003-1.022); Urobilinogen, Urine NORM (Normal)
[2023-05-02 22:37] LABS: Appearance, Urine Hazy (Clear); Color, Urine Yellow (P-Yellow)
[2023-05-02 22:40] LABS: Bacteria Many /hpf; Red Blood Cells, Urine 0-2 /hpf (0-2); Squamous Epithelial Cells Rare /hpf (Few)
[2023-05-03] MEDS ORDERED: FURO20 PO (01:45)
[2023-05-03] MEDS ORDERED: CEFP200 PO (01:45)
[2023-05-03] MEDS ORDERED: NAPR500 PO (01:45)
[2023-05-03] MEDS ORDERED: ONDA4ODT MM (01:46)
== END 2023-05-03 01:53 | disposition home or self-care (01) ==
LOC: ER 19:06
PROVIDERS: Physician Assistant
DX: G89.29 Other chronic pain (principal); M54.50 Low back pain, unspecified; R60.0 Localized edema; D64.9 Anemia, unspecified; R19.7 Diarrhea, unspecified; I25.10 Atherosclerotic heart disease of native coronary artery without angina pectoris; I11.0 Hypertensive heart disease with heart failure; I50.9 Heart failure, unspecified; J44.9 Chronic obstructive pulmonary disease, unspecified; F17.210 Nicotine dependence, cigarettes, uncomplicated; Z88.5 Allergy status to narcotic agent; Z79.52 Long term (current) use of systemic steroids; Z79.899 Other long term (current) drug therapy
CPT/HCPCS: 80053; 81001; 83605; 85025; 87077; 87086; 87186; 96374; 96375; 99283-25; J0696; J1885; J1940

== ENCOUNTER 2023-06-12 14:09 | Emergency (ER) | payer OTHER ==
[~2023-06-12] VITALS: Ht 172.7 cm; Wt 81.7 kg
[~2023-06-12 14:09] MED LIST changes: +CEFP200 PO; +FURO20 PO; +ONDA4ODT MM
[2023-06-12 15:46] LABS: BASOPHILS ABSOLUTE AUTO 0.03 K/mm3 (0.00-0.23); BASOPHILS PERCENT AUTO 1 % (0-2); EOSINOPHILS ABSOLUTE AUTO 0.02 K/mm3 (0.00-0.68); EOSINOPHILS PERCENT AUTO 0 % (0-6); Hematocrit 22.6 % (37.0-53.0); Hemoglobin 7.3 g/dL (13.5-17.5); IMMATURE GRAN ABSOLUTE AUTO 0.03 K/mm3 (0.00-0.10); IMMATURE GRAN PERCENT AUTO 1 % (0-1); LYMPHOCYTES ABSOLUTE AUTO 1.13 K/mm3 (0.84-5.20); LYMPHOCYTES PERCENT AUTO 18 % (21-46); MONOCYTES ABSOLUTE AUTO 0.78 K/mm3 (0.16-1.47); MONOCYTES PERCENT AUTO 12 % (4-13); Mean Corpuscular HGB 20.7 pg (26.0-34.0); Mean Corpuscular HGB Conc 32.3 g/dL (31.5-36.5); Mean Corpuscular Volume 64 fL (80-100); NEUTROPHILS ABSOLUTE AUTO 4.32 K/mm3 (1.96-9.15); NEUTROPHILS PERCENT AUTO 68 % (41-73); NRBC ABSOLUTE 0.02 K/mm3 (0.00-0.02); NRBC Auto 0.3 /100 WBC (0.0-0.2); Platelet Count 550 K/mm3 (150-400); RDW Coefficient Variation 22.5 % (11.7-14.2); RDW Standard Deviation 47.7 fL (35.1-46.3); Red Blood Cell Count 3.52 M/mm3 (4.30-5.90); White Blood Cell Count 6.31 K/mm3 (4.00-11.30)
[2023-06-12 15:50] LABS: Mean Platelet Volume 10.4 fL (9.1-12.4)
[2023-06-12 16:10] LABS: Albumin, Blood 2.6 g/dL (3.4-5.0); Albumin/Globulin Ratio 0.5 (0.8-1.8); Bilirubin, Total 0.9 mg/dL (0.1-1.0); Bun/Creatinine Ratio 44.4 (12.0-20.0); Calcium, Blood 9.1 mg/dL (8.5-10.1); Creatinine, Blood 1.87 mg/dL (0.60-1.20); Globulin, Blood 5.1 g/dL (2.2-4.0); Potassium, Blood 4.3 mmol/L (3.5-5.5); Total Protein, Blood 7.7 g/dL (6.4-8.2)
[2023-06-12] MEDS ORDERED: CEPH500 PO (16:54)
[2023-06-12 17:12] VITALS: BP 158/85
== END 2023-06-12 17:52 | disposition home or self-care (01) ==
LOC: ER 14:09
PROVIDERS: Physician Assistant
DX: L03.116 Cellulitis of left lower limb (principal); L03.115 Cellulitis of right lower limb; D64.9 Anemia, unspecified; I11.0 Hypertensive heart disease with heart failure; I50.9 Heart failure, unspecified; J44.9 Chronic obstructive pulmonary disease, unspecified; F17.210 Nicotine dependence, cigarettes, uncomplicated; Z88.5 Allergy status to narcotic agent; Z79.899 Other long term (current) drug therapy
CPT/HCPCS: 71046; 80053; 83880; 85025; 96365; 96375; 99284-25; J0690; J1885; J1940

== ENCOUNTER 2023-06-28 19:41 | Inpatient (IN) | payer OTHER ==
[~2023-06-28] VITALS: Ht 177.8 cm; Wt 73.2 kg
[2023-06-28 20:57] LABS: Albumin, Blood 2.5 g/dL (3.4-5.0); Albumin/Globulin Ratio 0.5 (0.8-1.8); Bilirubin, Total 2.5 mg/dL (0.1-1.0); Bun/Creatinine Ratio 48.8 (12.0-20.0); Calcium, Blood 8.7 mg/dL (8.5-10.1); Creatinine, Blood 2.4 mg/dL (0.60-1.20); Globulin, Blood 5.3 g/dL (2.2-4.0); Potassium, Blood 4.1 mmol/L (3.5-5.5); Total Protein, Blood 7.8 g/dL (6.4-8.2)
[2023-06-28 21:05] LABS: BASOPHILS ABSOLUTE AUTO 0.03 K/mm3 (0.00-0.23); BASOPHILS PERCENT AUTO 0 % (0-2); EOSINOPHILS ABSOLUTE AUTO 0.01 K/mm3 (0.00-0.68); EOSINOPHILS PERCENT AUTO 0 % (0-6); Hemoglobin 6.9 g/dL (13.5-17.5); IMMATURE GRAN ABSOLUTE AUTO 0.46 K/mm3 (0.00-0.10); IMMATURE GRAN PERCENT AUTO 5 % (0-1); LYMPHOCYTES ABSOLUTE AUTO 0.67 K/mm3 (0.84-5.20); LYMPHOCYTES PERCENT AUTO 7 % (21-46); MONOCYTES ABSOLUTE AUTO 0.72 K/mm3 (0.16-1.47); MONOCYTES PERCENT AUTO 7 % (4-13); Mean Corpuscular HGB 20.1 pg (26.0-34.0); Mean Corpuscular HGB Conc 28.8 g/dL (31.5-36.5); Mean Corpuscular Volume 70 fL (80-100); NEUTROPHILS PERCENT AUTO 81 % (41-73); NRBC ABSOLUTE 0.52 K/mm3 (0.00-0.02); NRBC Auto 5.1 /100 WBC (0.0-0.2); Platelet Count 284 K/mm3 (150-400); RDW Coefficient Variation 28.7 % (11.7-14.2); Red Blood Cell Count 3.44 M/mm3 (4.30-5.90); White Blood Cell Count 10.19 K/mm3 (4.00-11.30)
[2023-06-28 21:46] LABS: Influenza A, PCR NEGATIVE (NEGATIVE); Influenza B, PCR NEGATIVE (NEGATIVE); Resp Syncytial Virus, PCR NEGATIVE (NEGATIVE)
[2023-06-28 21:56] LABS: SARS-Cov-2 (COVID-19) PCR, MMC POSITIVE (NEGATIVE)
[2023-06-29] VITALS (7 sets, daily range): BP systolic 128–139; BP diastolic 56–65
[2023-06-29 01:41] LABS: International Normalized Ratio 1.19; Prothrombin Time Results 12.4 Sec (9.7-11.5)
--- NOTE | 2023-06-29 02:30 | NUR ---
ADMIT NOTE PT ADMITTED TO ROOM FROM ED BY JARET AND TRANSFERRED TO BED WITH ASSISTANCE AND SLIDER SHEET AT 0055. PT ORIENTED TO ROOM AND CALL LIGHT WITH TELE ATTACHED AND VERFIFIED. CURRENTLY ON 2 L O2 VIA NASAL CANNULA. DENIES ANY CHEST PAIN OR PRESSURE AT THIS TIME. BED ALRAM SET WITH BED IN THE LOWEST POSITION WITH CALL LIGHT IN REACH. WILL CONTINUE TO MONITOR
[2023-06-29 03:11] LABS: BASOPHILS ABSOLUTE AUTO 0.01 K/mm3 (0.00-0.23); BASOPHILS PERCENT AUTO 0 % (0-2); EOSINOPHILS PERCENT AUTO 0 % (0-6); Hematocrit 22.1 % (37.0-53.0); Hemoglobin 6.6 g/dL (13.5-17.5); IMMATURE GRAN PERCENT AUTO 4 % (0-1); LYMPHOCYTES ABSOLUTE AUTO 0.83 K/mm3 (0.84-5.20); LYMPHOCYTES PERCENT AUTO 8 % (21-46); MONOCYTES ABSOLUTE AUTO 0.73 K/mm3 (0.16-1.47); MONOCYTES PERCENT AUTO 7 % (4-13); Mean Corpuscular HGB 20.4 pg (26.0-34.0); Mean Corpuscular HGB Conc 29.9 g/dL (31.5-36.5); Mean Corpuscular Volume 68 fL (80-100); NEUTROPHILS ABSOLUTE AUTO 8.43 K/mm3 (1.96-9.15); NEUTROPHILS PERCENT AUTO 81 % (41-73); NRBC ABSOLUTE 0.34 K/mm3 (0.00-0.02); NRBC Auto 3.3 /100 WBC (0.0-0.2); Platelet Count 303 K/mm3 (150-400); RDW Coefficient Variation 28.2 % (11.7-14.2); RDW Standard Deviation 64.5 fL (35.1-46.3); Red Blood Cell Count 3.23 M/mm3 (4.30-5.90)
--- NOTE | 2023-06-29 03:24 | NUR ---
5 BEAT RUN V-TACH INFORMED HOSPITALIST VERBALLY WHEN HE CAME TO ASSESS THE PT. PT DENIED CP. NO NEW S/SX. NO NEW ORDERS AT THIS TIME.
[2023-06-29 03:31] LABS: Albumin, Blood 2.5 g/dL (3.4-5.0); Anion Gap 5 mmol/L (6-16); Blood Urea Nitrogen 117 mg/dL (8-24); Bun/Creatinine Ratio 47.4 (12.0-20.0); CO2, Blood 28 mmol/L (21-32); Calcium, Blood 8.6 mg/dL (8.5-10.1); Chloride, Blood 101 mmol/L (98-108); Creatinine, Blood 2.47 mg/dL (0.60-1.20); Glomerular Filtration Rate 28 (60-); Glucose, Blood 139 mg/dL (70-99); Phosphorus, Blood 3.8 mg/dL (2.5-4.9); Potassium, Blood 3.8 mmol/L (3.5-5.5); Sodium, Blood 134 mmol/L (136-145)
[2023-06-29 04:57] LABS: Percent Saturation 4.4 % (20.0-50.0)
--- NOTE | 2023-06-29 05:02 | NUR ---
CALLED HOSPITALIST PT STATES HE HAS SEVERE BACK PAIN. I DID CALL THE HOSPITALIST AND INFORM HIM OF PT'S ALLERGY. NEW PAIN MEDICATION ORDERED IN [facility].
--- NOTE | 2023-06-29 05:05 | NUR ---
SHIFT SUMMARY PT A&O X4, GARBLED SPEECH AND SLOW TO REPOND. PT WAS ADMITTED THIS SHIFT FROM THE ED. CURRENTLY ON 2L O2 VIA NASAL CANNULA. PT GIVEN 1 UNIT OF PACKED RBC THIS SHIFT. DR METZGER AT BEDSIDE THROUGHOUT AND TOLD PT ABOUT HIS POOR PROGNOSIS. DR OLIVIA CONSULT HIGHER LEVEL OF CARE. PT IS CURRENTLY ON BEDREST, INCONTINENT, WITH ATTENDS IN PLACE. PT SKIN IS VERY JAUNDICED WITH OPEN SORES ON ALL EXTREMITIES ESPECIALLY BLE. CRITICAL TROPONIN VALUES REPORTED. CODE STATUS CHANGED TO DNR. TELEMETRY: NSR @75, 5 BEAT RUN OF VTACH. PT DENIES ANY CHEST PAIN OR PRESSURE. PT IS COVID POS ON ENHANCED PRECAUTIONS. BED IN LOWEST POSITION WITH CALL LIGHT IN REACH. WILL CONTINUE TO MONITOR PT UNTIL SHIFT END.
[2023-06-29 05:53] LABS: Bilirubin, Direct 1.9 mg/dL (0.0-0.3); Bilirubin, Indirect 0.5 mg/dL (0.1-0.7); Bilirubin, Total 2.4 mg/dL (0.1-1.0)
[2023-06-29 07:23] LABS: BASOPHILS ABSOLUTE AUTO 0.01 K/mm3 (0.00-0.23); BASOPHILS PERCENT AUTO 0 % (0-2); EOSINOPHILS PERCENT AUTO 0 % (0-6); Hematocrit 22.5 % (37.0-53.0); IMMATURE GRAN ABSOLUTE AUTO 0.31 K/mm3 (0.00-0.10); IMMATURE GRAN PERCENT AUTO 3 % (0-1); LYMPHOCYTES ABSOLUTE AUTO 0.78 K/mm3 (0.84-5.20); LYMPHOCYTES PERCENT AUTO 8 % (21-46); MONOCYTES ABSOLUTE AUTO 0.76 K/mm3 (0.16-1.47); MONOCYTES PERCENT AUTO 8 % (4-13); Mean Corpuscular HGB 21.5 pg (26.0-34.0); Mean Corpuscular HGB Conc 31.1 g/dL (31.5-36.5); Mean Corpuscular Volume 69 fL (80-100); NEUTROPHILS ABSOLUTE AUTO 7.85 K/mm3 (1.96-9.15); NEUTROPHILS PERCENT AUTO 81 % (41-73); NRBC Auto 3.1 /100 WBC (0.0-0.2); Platelet Count 273 K/mm3 (150-400); RDW Coefficient Variation 27.9 % (11.7-14.2); RDW Standard Deviation 65.5 fL (35.1-46.3); Red Blood Cell Count 3.25 M/mm3 (4.30-5.90); White Blood Cell Count 9.71 K/mm3 (4.00-11.30)
--- NOTE | 2023-06-29 16:36 | NUR ---
PT HAS BEEN AOX2 AND VERY HARD TO UNDERSTAND WITH MINIMAL GARBLED SPEACH. PT WAS TO [facility] THIS AM TO TAKE ORAL MEDS. COMFORT CARE ORDER WAS PLACED AND PT IS BEING KEEP COMFORTABLE PER [facility]. PT RESTING AT THIS TIME AND IS REPOSITIONED Q2. WILL CONTINUE TO MONITOR CALL LIGHT WITHIN REACH.
--- NOTE | 2023-06-30 05:02 | NUR ---
COMFORT CARE SUMMARY PATIENT MOSTLY UNRESPONSIVE THIS SHIFT. PATIENT DID OCCASSIONALLY MOAN TO PAINFUL STIMULI. PATIENT RESPIRATIONS DECREASED THROUGHOUT SHIFT. PATIENT MEDICATED X1 FOR AIR HUNGER. PATIENT ALSO MEDICATED WITH ATROPINE DROPS. PATIENT CALM AND RESTING AT END OF SHIFT.
--- NOTE | 2023-06-30 11:51 | NUR ---
PT PASSED AT 1005. DR FAITH, CHARGE RNs AND HOSPITALITY AMBASSADOR. PT HAD BEEN KEEP COMFORTABLE UP TO PASSING. SISTER MINOO WAS NOTIFIED IMMEDIATELY AND [employer] WAS PICKED FOR HOME. PT WAS REMOVED FROM ROOM BY [employer]ONJA[employer] MOBI[employer] TE[employer].PERSONAL BELONINGS HELD AT DESIGN CENTER CONSULTANT PER DEBs REQUEST.
== END 2023-06-30 11:00 | DRG 291 ==
LOC: ER 19:41 → MEDS 23:29 → ENPENDDIS 06-30 10:08 → MEDS 06-30 11:00
PROVIDERS: Emergency Medicine; ADMIT Student in an Organized Health Care Education/Training Program
PROC: 30233N1 Transfusion of Nonautologous Red Blood Cells into Peripheral Vein, Percutaneous Approach (ICD-10-PCS; principal; 2023-06-28)
DX: I13.0 Hypertensive heart and chronic kidney disease with heart failure and stage 1 through stage 4 chronic kidney disease, or unspecified chronic kidney disease (principal); G92.8 Other toxic encephalopathy; I50.23 Acute on chronic systolic (congestive) heart failure; U07.1 COVID-19; J96.01 Acute respiratory failure with hypoxia; K72.00 Acute and subacute hepatic failure without coma; N17.9 Acute kidney failure, unspecified; E87.1 Hypo-osmolality and hyponatremia; I24.89 Other forms of acute ischemic heart disease; K92.2 Gastrointestinal hemorrhage, unspecified; Z66 Do not resuscitate; Z51.5 Encounter for palliative care; N18.30 Chronic kidney disease, stage 3 unspecified; F10.21 Alcohol dependence, in remission; F17.210 Nicotine dependence, cigarettes, uncomplicated; I25.10 Atherosclerotic heart disease of native coronary artery without angina pectoris; D63.1 Anemia in chronic kidney disease; F15.90 Other stimulant use, unspecified, uncomplicated; K70.9 Alcoholic liver disease, unspecified; K72.10 Chronic hepatic failure without coma; J44.9 Chronic obstructive pulmonary disease, unspecified; Z95.1 Presence of aortocoronary bypass graft; Z88.5 Allergy status to narcotic agent
CPT/HCPCS: 0241U; 36415; 36430; 71045; 76705; 76770; 80053; 80069; 82140; 82247; 82248; 82728; 82977; 83540; 83550; 83735; 83880; 84484; 85025; 85610; 86850; 86900; 86901; 86923; 93005; 93010; 93306; 94640; 94664; 94760; 99285-25; A9270; J1940; P9016